=== PATIENT | female | born 1980 | race Caucasian/White ===

== ENCOUNTER 2017-01-21 13:07 | Emergency (ER) | payer SELFPAY ==
[2013-12-20 01:43] VITALS: BP 128/76
[2017-01-21] MEDS: DEXAMETHASONE SOD PHOS 4 MG/ML VIAL IM ONE (13:30)
--- NOTE | 2017-01-21 13:37 | ED Physician Documentation ---
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 Rash began shortly thereafter, over entire body. On Medrol dosepack, 4th day of 50 mg/day. Using TAC and hydrocortisone creams as well. Says she always has to have injected steroids. Has not seen anyone for this problem, but has Medrol refill from last year. - ROS CONST: no problems - PAST HX Past History: none, other ("septic shock after pneumonia") Surgeries/Procedures: other (gastric bypass) Allergies/Adverse Reactions: Allergies Allergy/AdvReac Type Severity Reaction Status Date / Time No Known Allergies Allergy Verified 12/20/13 00:56 Home Medications: Ambulatory Orders Medication Instructions Recorded Levothyroxine Sodium #30 01/12/17 Norgestimate-Ethinyl Estradiol #28 01/12/17 [Tri-Linyah Tablet] - SOCIAL HX Smoking History: non-smoker - FAMILY HX Family History: No - VITAL SIGNS Vital Signs: Vital Signs Temp Pulse Resp BP Pulse Ox 128/76 12/20/13 00:01 - REVIEWED ASSESSMENTS Nursing Assessment Reviewed: Yes Vitals Reviewed: Yes ED Results Lab/Radiology - Orders Orders: ED Orders Category Date Time Status Dexamethasone Sod Phosphate [Decadron] Med 01/21/17 13:27 Once 12 mg IM NOW ONE General Adult Physical Exam - PHYSICAL EXAM GENERAL APPEARANCE: no distress EENT: eye inspection normal, ENT inspection normal NECK: normal inspection, supple RESPIRATORY: no resp distress RECTAL: deferred BACK: other (erect posture, fluid movements) SKIN: other (erythematous patches over most of body, excluding face ) EXTREMITIES: no evidence of injury NEURO: CN's nml as tested, motor nml, sensation nml Discharge Clincal Impression: Contact dermatitis Referrals: Desirae Longoria PRN [Primary Care Provider] - 2 Days Home Medications: Ambulatory Orders Levothyroxine Sodium #30 01/12/17 Norgestimate-Ethinyl Estradiol [Tri-Linyah Tablet] #28 01/12/17 Condition: Good Disposition: HOME, SELF-CARE Decision to Admit: NO Decision Time: 13:37
== END 2017-01-21 13:35 | disposition home or self-care (01) ==
LOC: ED 13:07
DX: R21 Rash and other nonspecific skin eruption (principal)
CPT/HCPCS: 96372; 99283; J1100